=== PATIENT | male | born 1995 | race Caucasian/White ===

== ENCOUNTER 2023-03-08 07:21 | Emergency (ER) | payer MEDICAID ==
[~2023-03-08] VITALS: Ht 170.2 cm; Wt 95.3 kg
[2023-03-08 07:39] VITALS: BP 133/82; PULSE 89; RESP 18; TEMP 97.3; O2SAT 100
[2023-03-08 08:23] LABS: BASOPHILS # (AUTO) 0.1 K/uL (0.00-0.22); BASOPHILS % (AUTO) 0.6 % (0.0-2.0); EOSINOPHILS # (AUTO) 0.1 K/uL (0-0.4); HEMATOCRIT 40.1 % (36-52); HEMOGLOBIN 13.2 g/dL (12.0-18.0); LYMPHOCYTES # (AUTO) 2.6 K/uL (2.0-11.5); LYMPHOCYTES % (AUTO) 22.7 % (20.5-51.1); MEAN CORPUSCULAR HEMOGLOBIN 29 pg (27-31); MEAN CORPUSCULAR HGB CONC 33 g/dL (33-37); MONOCYTES # (AUTO) 0.9 K/uL (0.8-1.0); MONOCYTES % (AUTO) 8.1 % (1.7-9.3); NEUTROPHILS # (AUTO) 7.7 K/uL (1.8-7.7); NEUTROPHILS % (AUTO) 67.6 % (42.2-75.2); PLATELET COUNT (AUTO) 243 K/uL (140-450); RED BLOOD CELL COUNT(AUTO) 4.61 MIL/uL (4.20-6.10); WHITE BLOOD COUNT (AUTO) 11.4 K/uL (4.8-10.8)
[2023-03-08 08:45] VITALS: BP 130/81; PULSE 84; RESP 18; TEMP 98.1; O2SAT 100
[2023-03-08 08:49] LABS: ALBUMIN 3.6 g/dL (3.4-5.0); ANION GAP 11.5 (8-16); CALCIUM 8.7 mg/dL (8.5-10.1); CARBON DIOXIDE 28.8 mmol/L (21-32); POTASSIUM 4.3 mmol/L (3.5-5.1); TOTAL BILIRUBIN 0.5 mg/dL (0.0-1.0); TOTAL PROTEIN, SERUM 7.1 g/dL (6.4-8.2)
[2023-03-08] MEDS ORDERED: LOPE1TAB14 PO (09:11)
[2023-03-08] MEDS ORDERED: CIPR500T4 PO (09:11)
== END 2023-03-08 09:21 | disposition home or self-care (01) ==
LOC: MED 07:21
DX: K52.9 Noninfective gastroenteritis and colitis, unspecified (principal); K92.1 Melena; F17.210 Nicotine dependence, cigarettes, uncomplicated; Z79.899 Other long term (current) drug therapy; Z79.2 Long term (current) use of antibiotics
CPT/HCPCS: 36415; 80053; 83690; 85025; 99284

== ENCOUNTER 2023-03-10 04:50 | Emergency (ER) | payer MEDICAID ==
[~2023-03-10] VITALS: Ht 170.2 cm; Wt 95.3 kg
[2023-03-10 04:39] VITALS: BP 150/90; PULSE 92; RESP 19; TEMP 98; O2SAT 100
[~2023-03-10 04:50] MED LIST: CIPR500T4 PO; LOPE1TAB14 PO
[2023-03-10] MEDS ORDERED: DEXAMETHASONE 4 MG TAB PO ONE (06:45)
[2023-03-10] MEDS ORDERED: AMOX1TAB8 PO (06:50)
[2023-03-10] MEDS ORDERED: CRUSHER, PILL MC ONE (07:44)
[2023-03-10 08:00] VITALS: BP 150/90; PULSE 92; RESP 19; TEMP 98; O2SAT 100
== END 2023-03-10 08:00 | disposition home or self-care (01) ==
LOC: MED 04:50
DX: K13.0 Diseases of lips (principal); Z79.899 Other long term (current) drug therapy
CPT/HCPCS: 99283